=== PATIENT | male | born 1975 | race Caucasian/White ===

== ENCOUNTER 2025-09-07 00:19 | Emergency (ER) | payer OTHER, SELFPAY ==
--- OUTSIDE RECORDS SUMMARY | 2025-07-11 14:20 | XMS_ITS | Encounter Summary ---
Author Organization [facility] Address [address] [place] [phone] Care Team Providers Care Press Reader Name Role Phone Az Welsh MD Primary Care Provider [phone] Reason for Referral * Consultation (Routine) - Pending Review Specialty Diagnoses / Procedures Referred By Contac t Referred To Contact Neurosurgery Diagnoses CHEF PASSENGER VESSEL (ventriculoperitoneal) shunt status Donnell Mederos MD [address] [address] Phone: tel: fax: Referral ID Status Reason Start Date Expiration Date V isits Requested Visits Authorized [id number] Pending Review 07/11/2025 07/11/2026 1 1 Comments Evaluate CHEF PASSENGER VESSEL shunt * (Routine) - Pending Review Specialty Diagnoses / Procedures Referred By Contac t Referred To Contact Diagnoses Abnormal auditory perception of both ears Procedures ENTAS AUDIOLOGIC ASSESSMENT Donnell Mederos MD 40 [facility] [address] [place] [address] Phone: tel: fax: Referral ID Status Reason Start Date Expiration Date V isits Requested Visits Authorized [id number] Pending Review 07/11/2025 07/11/2026 1 1 Reason for Visit * Reason Comments Tinnitus Encounter Details Date Type Department Care Team ([facility] st Contact Info) Description 07/11/2025 3:20 PM EDT Office Visit [facility]NT[facility] ENT [place] 40 [facility] [address] [place] [address] Donnell Mederos MD 40 [facility] [address] [place] [address] Abnormal auditory perception of both ears (Primary Dx); Tinnitus of both ears; Tympanosclerosis of both ears; Neck mass; Deviated nasal septum; Sensorineural hearing loss (SNHL) of both ears; CHEF PASSENGER VESSEL (ventriculoperitoneal ) shunt status Social History Tobacco Use Types Packs/Day Years Used Date Smoking Tobacco: Never Smokeless Tobacco: Current Chew Alcohol Use Standard Drinks/Week Comments No 0 (1 standard drink = 0.6 oz pur e alcohol) PHQ-2 Answer Date Recorded PHQ-2 Total Score 0 10/06/2020 Sexually Active Control Partners Comments Yes Female Sex and Gender Information Value Date Recorded Sex Assigned at Not on file Legal Sex Male 5:53 AM EDT Gender Identity Not on file Sexual Orientation Not on file Occupation Industry Job Start Date Job End Date 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 Answer Date of Assessment Author No 10/06/2020 2:42 PM Nesha Garza RMA * Is the person blind or does he/she have serious difficulty seeing even when wearing glasses? Answer Date of Assessment Author No 10/06/2020 2:42 PM Nesha Garza RMA * Does this person have serious difficulty walking or climbing stairs? Answer Date of Assessment Author No 10/06/2020 2:42 PM Nesha Garza RMA * Does this person have difficulty dressing or bathing? Answer Date of Assessment Author No 10/06/2020 2:42 PM Nesha Garza RMA * Because of a physical, mental or emotional condition, does this person have difficulty doing errands alone such as visiting a doctor's office or shopping? Answer Date of Assessment Author No 10/06/2020 2:42 PM Nesha Garza RMA documented as of this encounter Mental Status * Because of a physical, mental or emotional condition, does this person have serious difficulty concentrating, remembering or making decisions? Answer Entry Date Author No 10/06/2020 2:42 PM Nesha Garza RMA documented in this encounter Progress Notes * Donnell Mederos MD - 07/11/2025 3:20 PM EDT Images from the original note were not included. Levon Marie 1975 50 y.o. male 07/11/2025 Follow-up Ear or Hearing Health Visit Donnell Mederos MD, ENT ENT [facility] Referring Provider: No ref. provider found Chief Complaint Patient presents with Tinnitus HPI Levon Marie is a 50 y.o. male who is here to follow up regarding tinnitus: ringing. The patient was last seen on 07/05/2023. Patient states since last visit symptoms are worse . Right ear: tinnitus: ringing Left ear: tinnitus: ringing occasionally Hearing loss most noticeable when: They are in conversation and have trouble understanding words and There is noise coming from several sources Tinnitus is most noticeable when: all the time Do loud noises cause ears any discomfort: no Wear hearing aids: No Current treatment: none Exposed to loud noises: none When exposed to loud noises, does the patient wear hearing protection? No Does the patient take Aspirin? No Is there a family history of hearing loss? yes-Uncle Does the patient have any trouble with anesthesia? no Is there a family history of: Trouble with anesthesia? no Malignant Hyperthermia (high fever due to anesthesia)? no Pseudo cholinesterase deficiency (enzyme deficiency/very long time to wake from anesthesia)? no I, Dr.Steven Sepideh Mederos, have personally reviewed all above HPI elements in person and have updated as needed. Medical History: Past Medical History: Diagnosis Date Hydrocephalus (HCC) RLS (restless legs syndrome) Patient Active Problem List Diagnosis Date Noted Asymptomatic varicose veins of right lower extremity 07/05/2023 No ongoing issues. Compression Tinnitus, right ear 07/05/2023 Sensorineural hearing loss, bilateral 07/05/2023 Mixed conductive and sensorineural hearing loss of left ear with restricted hearing of right ear 07/05/2023 Sensorineural hearing loss (SNHL) of right ear with restricted hearing of left ear 07/05/2023 Vitamin D deficiency 10/20/2020 Recommend replacement. Fatigue 10/06/2020 CHEF PASSENGER VESSEL (ventriculoperitoneal) shunt status 10/14/2016 No current outpatient medications Allergies Allergen Reactions Aspirin Penicillins Past Surgical History: Procedure Laterality Date VENTRICULOPERITONEAL SHUNT Social History Tobacco Use Smoking status: Never Smokeless tobacco: Current Types: Chew Substance Use Topics Alcohol use: No Alcohol/week: 0.0 oz Drug use: Never Family History Problem Relation Age of Onset No Known Problems Mother High Cholesterol Father Anxiety Disorder Father ROS Positive: hearing loss, ringing Exam: Vitals: 07/11/25 1519 BP: 133/78 BP Location: Left arm Patient Position: Sitting Weight: 163 lb (73.9 kg) Height: 5' 10 (1.778 m) Body mass index is 23.39 kg/m??. General: -: well nourished, well developed, well groomed, age appropriate oral communication, normal voice sounds, no stridor Head and Face: -: no abnormalities of head and face, absence of sinus tenderness on palpation, saliva gland normal to inspection and palpation, facial strength symmetrical Eyes: -: ocular mobility and gaze alignment normal, pupils equal and reactive to light External Nose: -: Nasal dorsum grossly normal, without lesion Internal Nose: Septum: deviates left (mild) Hearing: -: Clinical hearing thresholds-Normal Right Ear: -: Pre and post-auricular soft tissue and pinna normal TM: myringosclerosis (mild) Left Ear: -: Pre and post-auricular soft tissue and pinna normal TM: myringosclerosis (mild) Oral Cavity: -: Appeared normal- including lips, dentition and tongue Oropharynx: Tonsils: absent Larynx: -: Voice normal, no stridor Thyroid: -: Thyroid not enlarged, symmetric, no tenderness, mass, nodules noted Neck: -: (CHEF PASSENGER VESSEL shunt right posterior neck 3cm soft cystic mass right posterior neck near the shunt) Lymphatic: -: Palpation of the cervical and paratracheal lymph nodes reveals no adenopathy Respiratory: -: Inspection of chest reveals symmetrical shape and expansion with respiration, Lungsclear to auscultation Cardio: -: Ausculation reveals regular rate and rhythm without rub, murmur or gallop, Peripheral vascular system without swelling, varicosities. No edema with adequate capillary refill. Neurological: -: Alert, appropriate and does not appear agitated, Oriented to time, place and person, Normal mood and affect Assessment and Plan: Levon was seen today for tinnitus. Diagnoses and all orders for this visit: Abnormal auditory perception of both ears - ENTAS AUDIOLOGIC ASSESSMENT Tinnitus of both ears Tympanosclerosis of both ears Neck mass Deviated nasal septum Sensorineural hearing loss (SNHL) of both ears CHEF PASSENGER VESSEL (ventriculoperitoneal) shunt status - AMB REFERRAL TO NEUROSURGERY The patient presents today for follow-up regarding chronic ringing tinnitus. He has had this problem for at least 5 years or so. He says the ringing is more prominent in the right ear. He denies history of significant loud noise exposure. He was seen back in June [address] Lugo and did have significant high-frequency hearing loss at that time. He also has history of right CHEF PASSENGER VESSEL shunt since he was a young child and has not received any care for the shunt since he was a child. He appearsto have a 3 cm cystic mass behind the right ear very near the shunt which is most consistent with inclusion cyst. Audiogram done today shows normal to moderately severe sensorineural hearing loss in both ears. Discrimination scores are 100% in both ears. Tympanograms showed normal mobility and normal middle ear pressures in both ears. We discussed his tinnitus and I believe his high-frequency hearing loss is likely the main cause ofthe tinnitus. He does have this CHEF PASSENGER VESSEL shunt that has been in place since he was a young child. There is also an apparent epidermal inclusion cyst closely associated with the shunt behind his right ear. He was advised to years ago to see a neurosurgeon to evaluate the shunt but he was unable to get that done. We will reconsult neurosurgery to see him regarding the shunt to see if it possibly could beremoved or if it is still necessary. Ideally, the shunt can be removed and then this mass near the shunt could also be excised. I did tell him that potential infection of this cystic mass could be very detrimental if the CHEF PASSENGER VESSEL shunt is left in place. I also advised him on masking techniques for his tinnitus and told him to protect his ears from loud noise exposure in the future. He will follow-up for removal of the cyst as needed. I recommend follow-up audiogram in about 2 years. Return in about 2 years (around 07/11/2027). [facility] ENT ENT [facility] [address] [facility] [address] This note may have been partially dictated using [employer] voice recognition software and may contain unintended error. * Blessing Rodriguez AU.D - 07/11/2025 3:20 PM EDT Images from the original note were not included. [facility] AUDIOLOGY AUDIOMETRIC EVALUATION - Audiogram The patients??? chief complaint, current history, medication list, and reason for referral was reviewed from the patient???s electronic medical record, history form, and verbal inquiry of the patient. Patient reports:decrease hearing Findings: Audiometry results: Normal to moderately severe SNHL bilaterally Test technique: Pure tone audiometry Reliability: Good Speech audiometry: Right ear word recognition scores: excellent Left ear word recognition scores excellent Immittance Measures: Bilateral Ears: normal mobility and middle ear pressure Impression: SNHL, Au Recommendations: Per Dr. Gatito MD. JESI. Hearing protection. documented in this encounter Plan of Treatment Scheduled Referrals Name Type Priority Associated Diagnoses Order Schedule AMB REFERRAL TO NEUROSURGERY Outpatient Referral Routine CHEF PASSENGER VESSEL (ventriculoperitone al) shunt status Ordered: 07/11/2025 documented as of this encounter Goals Goal Patient Goal Type Associated Problems Recent Progress Patient-Stated? Author Maintain a healthy diet, exercise regularly and maintain an ideal body weight General No Justa [place] CMA Stay Tobacco Free Lifestyle No Justa [place] CMA documented as of this encounter Visit Diagnoses Diagnosis Abnormal auditory perception of both ears- Primary Tinnitus of both ears Unspecified tinnitus Tympanosclerosis of both ears Tympanosclerosis, unspecified as to involvement Neck mass Swelling, mass, or lump in head and neck Deviated nasal septum Sensorineural hearing loss (SNHL) of both ears CHEF PASSENGER VESSEL (ventriculoperitoneal) shunt status Presence of cerebrospinal fluid drainage device documented in this encounter Orders Nursing Count Last Ordered Date First Orde red Date ENTAS AUDIOLOGIC ASSESSMENT 1 07/11/2025 documented in this encounter Care Teams Press Reader Relationship Specialty Start Date End Date Az Welsh MD [address] [place] [phone] PCP - General Family Medicine 07/05/23 documented as of this encounter
[2025-09-07 00:26] VITALS: BP 150/98; PULSE 55; RESP 16; TEMP 36.6; O2SAT 100; BMI 25.1
--- NOTE | 2025-09-07 00:29 | XR_ITS ---
PROCEDURE INFORMATION: Exam: XR Left Foot Exam date and time: 09/07/2025 12:37 AM Age: 50 years old Clinical indication: Injury or trauma; Other: Knocked pinky toe against doorframe; Blunt trauma; Toes; Left lesser toe(s); Additional info: Foot injury TECHNIQUE: Imaging protocol: Radiologic exam of the left foot. Views: 3 or more views. COMPARISON: No relevant prior studies available. FINDINGS: Bones/joints: The foot is normally aligned and intact. No acute fracture. No significant degenerative changes. Soft tissues: Normal. IMPRESSION: No acute fracture.
--- OUTSIDE RECORDS SUMMARY | 2025-09-07 00:32 | XMS_ITS | Clinical Summary ---
Author Organization [facility] Address [address] [place] [phone] Phone Care Team Providers Care Food Runner Name Role Phone Az Welsh MD Primary Care Provider [phone] Allergies Active Allergy Reactions Criticality Noted Date Comments Aspirin Penicillins Medications No known medications Active Problems Problem Noted Date Diagnosed Date Asymptomatic varicose veins of right lower extre mity 07/05/2023 Overview (07/05/2023): No ongoing issues. Compression Tinnitus, right ear 07/05/2023 Sensorineural hearing loss, bilateral 07/05/2023 Mixed conductive and sensori neural hearing loss of left ear with restricted hearing of right ear 07/05/2023 Sensorineural hearing loss ( SNHL) of right ear with restricted hearing of left ear 07/05/2023 Vitamin D deficiency 10/20/2020 Overview (07/05/2023): Recommend replacement. Fatigue 10/06/2020 SCRAP PREPARER (ventriculoperitoneal) shunt status 6 Encounters Date Type Department Care Team Description 07/31/2025 Telephone ENT ENT [address] [phone] Donnell Mederos MD Other (Neurosurgeon is requesting a MRI be ordered prior to accepting neurosurgeon referral) 07/11/2025 3:20 PM EDT Office Visit ENT[address] [place] [address] Donnell Mederos MD Abnormal auditory perception of both ears (Primary Dx); Tinnitus of both ears; Tympanosclerosis of both ears; Neck mass; Deviated nasal septum; Sensorineural hearing loss (SNHL) of both ears; SCRAP PREPARER (ventriculoperitoneal) shunt status from Last 3 Months Surgical History Surgery Date Site/Laterality Comments VENTRICULOPERITONEAL SHUNT Medical History Medical History Date Comments Hydrocephalus (HCC) RLS (restless legs syndrome) Family History Medical History Relation Name Comments Anxiety Disorder Father High Cholesterol Father No Known Problems Mother Relation Name Status Comments Brother 1 Alive Brother 2 Alive Father Alive Mother Alive Sister 1 Alive Sister 2 Social History Tobacco Use Types Packs/Day Years Used Date Smoking Tobacco: Never Smokeless Tobacco: Current Chew Tobacco Cessation:Ready to Q uit: Not Asked; Counseling Given: Not Answered Alcohol Use Standard Drinks/Week Comments No 0 [...] Job Start Date Job End Date 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 Not on file Not on file Not on file Last Filed Vital Signs Vital Sign Reading Time Taken Comments Blood Pressure 133/78 07/11/2025 3:19 PM EDT Pulse 56 07/05/2023 12:09 PM EDT Temperature 36.8 C (98.2 F) 07/05/2023 12:09 PM EDT Respiratory Rate 18 07/05/2023 9:07 AM EDT Oxygen Saturation 99% 07/05/2023 9:07 AM EDT Inhaled Oxygen Concentration - - Weight 73.9 kg (163 lb) 07/11/2025 3:19 PM EDT Height 177.8 cm (5' 10 ) 07/11/2025 3:19 PM EDT Body Mass Index 23.39 07/11/2025 3:19 PM EDT Plan of Treatment Health Maintenance Due Date Last Done Comments DTaP/TDaP/Td (5 - Tdap) 12/24/1991 12/23/18 92, 05/13/1981, 03/15/1979, Additional history exists Hepatitis B Vaccine (1 of 3 - 19+ 3-dose series) 1995 Cologuard 2021 Colon Cancer Screening 2021 Colonoscopy 2021 FIT 2021 Sigmoidoscopy 2021 Virtual Colonography 2021 Annual Wellness Exam 07/05/2024 07/05/2023 COVID-19 Vaccine (2024- season) 2025 Influenza Vaccine (#1) 2025 Meningococcal B Vaccine Aged Out No l onger eligible based on patient's age to complete this topic Pneumococcal Vaccine 0-49 Aged Out No longer eligible based on patient's age to complete this topic Goals Goal Patient Goal Type Associated Problems Recent Progress Patient-Stated? Author Maintain a healthy diet, exercise regularly and maintain an ideal body weight General No Justa [place] CMA Stay Tobacco Free Lifestyle No Justa [place] CMA Insurance CHOICE PLUS [facility] CHOICE PLUS Care Teams Food Runner Relationship Specialty Start Date End Date Az Welsh [place] [address] [place] [address] PCP - General Family Medicine 07/05/23
--- OUTSIDE RECORDS SUMMARY | 2025-09-07 00:32 | XMS_ITS | Encounter Summary ---
Author Organization [facility] Address [address] [facility] [address] [place] [address] Care Team Providers Care Technology Intern Name Role Phone Az Welsh MD Primary Care Provider [phone] Reason for Referral * MRI/CAT Scan (Routine) - Pending Review Specialty Diagnoses / Procedures Referred By Contac t Referred To Contact Radiology Diagnoses Neck mass TENNIS CAMP INSTRUCTOR (ventriculoperitoneal) shunt status Procedures CT SOFT TISSUE NECK W CONTRAST Donnell Mederos MD [address] [place] [address] Phone: tel: fax: Referral ID Status Reason Start Date Expiration Date V isits Requested Visits Authorized [id number] Pending Review 08/26/2025 08/26/2026 1 1 Reason for Visit * Reason Onset Date Comments Other 07/31/2025 Neurosurgeon is requesting a MRI be ordered prior to accepting neurosurgeon referral Encounter Details Date Type Department Care Team (Late st Contact Info) Description 07/31/2025 Telephone ENTAS ENT [facility] [address] [facility] [address] [place] [address] Donnell Mederos MD [address] [place] [address] [address] [place] [address] Other (Neurosurgeon is requesting a MRI be ordered prior to accepting neurosurgeon referral) Social History Tobacco Use Types Packs/Day Years [...] on file documented as of this encounter Functional Status * Is the [...] Author No 10/06/2020 2:42 PM Nesha Garza RMAlfie documented as of this encounter Mental Status * Because of a physical, mental or emotional condition, does this person have serious difficulty concentrating, remembering or making decisions? Answer Entry Date Author No 10/06/2020 2:42 PM Nesha Garza RMAlfie documented in this encounter Miscellaneous Notes * Addendum Note - Tomeka Perdomo RN - 08/26/2025 2:49 PM EDTAddended by: TOMEKA PERDOMO on: 08/26/2025 02:49 PM Modules accepted: Orders * Telephone Encounter - Tomeka Perdomo RN - 08/26/2025 2:44 PM EDT Attempted to reach patient, left another message and sent a My Chart message with an updated plan. CT soft tissue neck w/contrast ordered and patient was provided the number to Central Scheduling. Patient was provided my direct line to further discuss. * Telephone Encounter - Tomeka Perdomo RN - 08/22/2025 6:[address] Malhotra spoke with Dr. Mederos regarding referral evaluation. It was decided to order imaging and review results before proceeding with a neurosurgeon referral. Attempted to reach patient, left message instructing patient to contact the office to further discuss. * Telephone Encounter - Tomeka Perdomo RN - 08/18/2025 3:11 PM EDT [facility] was contacted on 08/05/[address] Mederos's preferences and a request to have a MD further discuss with Dr. Mederos was made. 08/18 follow up call placed to [facility] requesting a call back for reconsideration of scheduling patient without ordering imaging. manager digital to call back to further discuss. * Telephone Encounter - Donnell Mederos MD - 07/31/2025 4:56 PM EDT I would prefer that they evaluate the patient and then order the test that they deem appropriate. We do not manage TENNIS CAMP INSTRUCTOR shunts. * Telephone Encounter - Tomeka Perdomo RN - 07/31/2025 3:53 PM EDT Patient was last evaluated in clinic by Dr. Magary for tinnitus and sensorineural hearing loss. Patient has a history of a right TENNIS CAMP INSTRUCTOR shunt and was noted to have a cyst behind the right ear, near the shunt site. Patient was referred to neurosurgery. Patient contacted the office stating the neurosurgeon office is requiring a MRI be ordered prior to accepting the neurosurgery referral. Please advise if ordering imaging for this patient would be possible. documented in this encounter Plan of Treatment Scheduled Orders Name Type Priority Associated Diagnoses Orde r Schedule CT SOFT TISSUE NECK W CONTRAST Imaging Routine Neck mass TENNIS CAMP INSTRUCTOR (ventriculoperitoneal) shunt status Expected: 08/28/2025 (Approximate), Expires: 08/26/2026 documented as of this encounter Goals Goal Patient Goal Type Associated Problems Recent Progress Patient-Stated? Author Maintain a healthy diet, exercise regularly and maintain an ideal body weight General No Justa [place] CMA Stay Tobacco Free Lifestyle No Justa [place] CMA documented as of this encounter Visit Diagnoses Diagnosis Neck mass- Primary Swelling, mass, or lump in head and neck TENNIS CAMP INSTRUCTOR (ventriculoperitoneal) shunt status Presence of cerebrospinal fluid drainage device documented in this encounter Care Teams Technology Intern Relationship Specialty Start Date End Date Az Welsh MD [address] [place] [phone] PCP - General Family Medicine 07/05/23 documented as of this encounter
--- OUTSIDE RECORDS SUMMARY | 2025-09-07 00:32 | XMS_ITS | Clinical Summary ---
Author Organization [facility] Address [address] [place] [id number] Phone Care Team Providers Care Furnace Tender Name Role Phone Manuel CORTEZ, Mono Sahu [phone] Conditions or Problems Problem Name Problem Code Onset Date Status Entry Date Provider Comment Standard Description Annotate HERNIATED LUMBAR DISC [id number] (SNOMED CT) Active Beatriz Hundemer Prolapsed lumbar intervertebral disc Medications Medication Instructions Start Date Stop Date Generic Name NDC Provider NEURONTIN 300 MG CAPS 1 po q day x 3 days; 1 po bid for 3 days; then 1 po tid as needed for nerve pain. GABAPENTIN [id number] Mono Jackson MD REQUIP TABLET [facility] ROPINIROLE HYDROCHLORIDE TABS [id number] Beatriz Hundemer ETODOLAC 500 MG TABS [facility] ETODOLAC [id number] Beatriz Hundemer FLEXERIL 10 MG TABS [facility] CYCLOBENZAPRINE HCL [id number] Beatriz Hundemer PERCOCET 5-325 MG TABS [facility] OXYCODONE-ACETAMIN OPHEN [id number] Beatriz Hundemer Medications Administered No information available. Allergies, Adverse Reactions, Alerts Allergy Name Reaction Description Start Date Severity Statu s Provider PENICILLIN Critical Beatriz H undemer ASPIRIN Critical Beatriz Hu ndemer Results No information available. Plan of Care No information available. Procedures No information available. Vital Signs Date Name Value Unit Description BP Diastolic 70 mm[Hg] blood pressu re, diastolic BP Systolic 130 mm[Hg] blood pressur e, systolic Height 71 [in_us] height E&M Weight Measured 235 [lb_av] weight E& M Weight Measured 235 [lb_av] weight E& M Immunizations No information available. Advance Directives No information available.
--- NOTE | 2025-09-07 00:39 | ED_ITS ---
Discharge Plan Disposition Patient Disposition: Home, Self-Care Referrals Follow up/Referrals: Nancy Rojas APRN [Primary Care Provider, Medical] - See instructions Shaan Mcconnell DO [Staff Physician, Orthopedics] - See instructions Activity Restrictions/Add. Instructions Additional Instructions/Restrictions: Please follow-up with your primary care provider. Please return to the emergency department if you develop any new or worsening symptoms or become concerned for your health. Recommend keeping the pinky toe caty taped to the fourth toe. Recommend hard soled shoe. Clinical Impressions Clinical Impression: Injury of small toe Qualifiers: Encounter type: initial encounter Laterality: left Qualified Code(s): S99.922A - Unspecified injury of left foot, initial encounter Print Language Print Language: Serbian Discharge ED Provider: Bakari Jarrett General Adult HPI General Chief complaint: Extremity Injury, Lower Stated complaint: Possible Broken pinky toe on L foot Time Seen by Provider: 09/07/25 00:20 Mode of Arrival: Ambulatory Source of Information: Patient Description of Symptoms (Recalled from ER Triage Doc. by RN): patient hit his left pinky toe on door frame of bathroom; thinks he broke it History of Present Illness HPI narrative: 50-year-old male presents with injury to his left small toe. He ran into the door frame while he was half-asleep. He reports it was pointed sideways and then he squeezed his foot and it came back to normal. Denies any laceration or any other injuries. Related Data Allergies Allergy/AdvReac Type Severity Reaction Status Date / Time No Known Allergies Allergy Verified 09/07/25 00:28 [facility] Disclaimer: The information contained in this section may have been updated after the patient was seen, as this information can be updated by other users. Social History Smoking Status: Never smoker alcohol intake: never current occupational status: employed Travel in the last 8 weeks?: None ROS Obtained: Yes All systems reviewed & no additional complaints except as documented Physical Exam General General appearance: alert and in no apparent distress Head Head exam: atraumatic and normocephalic Eye Eye exam: Present normal appearance, PERRL and EOMI ENT ENT exam: Present normal oropharynx and normal external ear exam Neck Neck exam: Present normal inspection and full ROM Chest Chest inspection: Present normal inspection and symmetric chest wall rise; Absent tenderness Respiratory Respiratory exam: Present normal lung sounds bilaterally; Absent respiratory distress Cardiovascular Cardiovascular exam: Present regular rate and normal rhythm Abdominal Exam Abdominal exam: Present soft; Absent distention, tenderness or guarding Extremities Exam Extremities exam: Present normal inspection; Absent edema or joint swelling Back Exam Back exam: Present normal inspection; Absent tenderness Neurological Exam Neurological exam: Present alert and oriented X3; Absent motor sensory deficit Psychiatric Psychiatric exam: Present normal affect and normal mood Skin Skin exam: Present warm, dry and normal color Lymphatic Lymphatic Findings: no adenopathy Medical Decision Making Medical Records Medical records reviewed: Yes I reviewed the patient's medical records. Screening: Per USPSTF and CDC recommendations, given the prevalence of disease in our region, it is our hospital?s policy to screen for HIV and viral Hepatitis for all patients aged 18 and over and those with ongoing risk factors. Serafin Inquiry Pt receiving controlled substance: No Serafin was queried for this patient: No Vital Signs: 09/07/25 00:26 09/07/25 00:56 Temperature 97.9 F 98.6 F Temperature Source Oral Pulse Rate 84 Pulse Rate [Right Radial] 55 L Respiratory Rate 16 16 Blood Pressure 136/87 Blood Pressure [Right Arm] 150/98 H Blood Pressure Mean [Right Arm] 115 Blood Pressure Source [Right Arm] Automatic Cuff Blood Pressure Position [Right Arm] Supine 02 Sat by Pulse Oximetry 100 Oxygen Delivery Method Room Air Room Air Lab Data Lab results reviewed: Yes I reviewed the patient's lab results. Orders (Tests/Meds): ORDERS Category Date Time Status XR foot LT min 3V Stat Exams 09/07/25 00:29 Completed Medical Decision Narrative: 50-year-old male without significant past medical history presents for injury to his left small toe.. History was obtained via interactive discussion with patient. On arrival, patient is [afebrile, hemodynamically stable, satting appropriately, alert, oriented x4, GCS 15], moving all extremities spontaneously. Full physical exam performed and significant for no significant laceration or bruising to the foot. Differential includes but is not limited to fracture, dislocation, neurova scular/ligamentous injury. Radiograph of the left foot was obtained and independent interpreted by me, no obvious acute fracture. On the lateral there is some question, but it is only in the single view. Either way, we will treat with caty taping for possible dislocation/fracture. Patient was discharged in stable condition instructed to use a hard soled shoe and follow-up with PCP/Ortho as needed. Procedures Risk/Benefits of Procedure(s) Were Explained: Yes Critical Care Critical Care Time Critical Care Time: No
[2025-09-07 00:56] VITALS: BP 136/87; PULSE 84; RESP 16; TEMP 37; O2SAT 100
== END 2025-09-07 01:01 | disposition home or self-care (01) ==
PROVIDERS: Emergency Provider Emergency Medicine; PCP Nurse Practitioner
DX: S99.922A Unspecified injury of left foot, initial encounter (principal); W22.8XXA Striking against or struck by other objects, initial encounter
CPT/HCPCS: 73630; 99283